=== PATIENT | male | born 1950 | race African-American/Black ===

== ENCOUNTER → 2018-07-12 | Outpatient (CLI) | payer MEDICARE ==
--- NOTE | 2018-07-12 17:37 | RAD ---
Lumbar spine 3 views. HISTORY: Left Sciatica, low back pain 3 views were taken of the lumbar spine. There is degenerative disc disease at L4-5 and L5-S1. There is hypertrophic spurring on multiple vertebral bodies. There is no acute fracture. IMPRESSION: 1. Degenerative disc disease in the lumbar spine. 2. Hypertrophic change in the lumbar spine. 3. No acute fracture. Electronically signed by: Nico Sam MD (07/12/2018 5:35 PM) [id number]
== END | disposition home or self-care (01) ==
LOC: RAD 15:13
PROVIDERS: ATTEND Family Medicine
DX: M51.37 Other intervertebral disc degeneration, lumbosacral region (principal); M89.38 Hypertrophy of bone, other site; M54.32 Sciatica, left side
CPT/HCPCS: 72100